=== PATIENT | female | born 1995 | race Two or more races ===

== ENCOUNTER → 2021-02-11 | Outpatient (CLI) | payer OTHER ==
--- NOTE | 2021-02-13 03:40 | MR ---
EXAMINATION TYPE: MR cspine/tspine wo con DATE OF EXAM: 02/11/2021 COMPARISON: None HISTORY: Disc herniation Multiplanar multiecho imaging of the cervical and thoracic spine without contrast. Cervical vertebra have normal alignment. Disc spaces are normal. Cervical spinal cord appears normal. Brainstem is intact. There is no evidence of cervical disc herniation. There is no evidence of cervi [place] spine fracture. There is developmentally adequate spinal canal. There is no cervical paraspinal m ass. The thoracic vertebra have normal spacing and alignment. Thoracic spinal cord appears normal. There i s no thoracic disc herniation. There is no evidence of thoracic spinal stenosis. There is no thoracic paraspinal mass. I see no focal bone destruction. IMPRESSION: Normal MR scan of the cervical spine. Normal MR scan of the thoracic spine.
== END | disposition home or self-care (01) ==
LOC: RADMRIMAIN 07:50
PROVIDERS: ATTEND Preventive Medicine Occupational Medicine
DX: M51.14 Intervertebral disc disorders with radiculopathy, thoracic region (principal)
CPT/HCPCS: 72141; 72146